=== PATIENT | male | born 1970 | race Two or more races ===

== ENCOUNTER 2018-11-20 11:44 | Emergency (ER) | payer MEDICAID, OTHER ==
[~2018-11-20] VITALS: Ht 175.3 cm; Wt 86.2 kg
[2018-11-20 12:47] VITALS: BP 139/103
[2018-11-20] MEDS ORDERED: ONDANSETRON ODT 4 MG TAB PO ONE ×2 (13:30)
== END 2018-11-20 14:49 | disposition home or self-care (01) ==
LOC: ER 11:44
DX: S93.601A Unspecified sprain of right foot, initial encounter (principal); J45.909 Unspecified asthma, uncomplicated; I10 Essential (primary) hypertension; F17.210 Nicotine dependence, cigarettes, uncomplicated; W01.198A Fall on same level from slipping, tripping and stumbling with subsequent striking against other object, initial encounter; Y93.01 Activity, walking, marching and hiking; Y99.8 Other external cause status; Y92.89 Other specified places as the place of occurrence of the external cause
CPT/HCPCS: 73630; 99283; Q0162